=== PATIENT | male | born 1955 | race Caucasian/White ===

== ENCOUNTER 2017-01-19 15:53 | Observation (INO) | payer OTHER ==
--- NOTE | ~2017-01-19 | OP ---
Record Of Operation [facility] [address] [place]. [address] NAME: RUPA GUERRERO : 53 STATUS : DIS Alla PAT#: [id number] AGE: 61 ADM/REG DATE : 01/19/17 MR#: [id number] REPORT SERV DATE: 01/23/17 DICTATED BY: JR SAMPSON DATE: 01/20/17 REPORT STATUS : Draft TRANSCRIBED BY: MODL DATE: 01/20/17 DATE OF PROCEDURE: 01/20/2017 PREOPERATIVE DIAGNOSES: 1. Large recurrent herniated nucleus pulposus, L4-5. 2. Spinal stenosis, L4-5. 3. Intractable radiculopathy left and right L4-5. POSTOPERATIVE DIAGNOSES: 1. Large recurrent herniated nucleus pulposus, L4-5. 2. Spinal stenosis, L4-5. 3. Intractable radiculopathy left and right L4-5. PROCEDURE: 1. Microscopic navigation-assisted surgery. 2. Right L4-5 and left L4-5 hemilaminectomy, foraminotomy, partial facetectomy, and microdiskectomy. SURGEON: Rj Sampson D.O. FRONT DESK AGENT: Michael Arcos. ANESTHESIA: General. BLOOD LOSS: 20 mL. INDICATION FOR SURGERY: Listed in history and physical. See that for detail. DESCRIPTION OF PROCEDURE: The patient was identified in preoperative holding area, antibiotic prophylaxis given. Neurophysiology monitoring leads inserted. The patient was brought to the operative suite. General anesthetic including endotracheal intubation was administered. Eckert catheter was not necessary. He was placed prone on a Seng spine frame. Bony prominences were carefully padded. Thoracolumbar spine was scrubbed with Hibiclens solution. DuraPrep was painted. Sterile drapes were applied. Because of the complexity of surgery and the need to identify correct level of surgery intraoperatively as well as desire to carry out the safest and most precise dissection, I felt intraoperative navigation was mandatory. A small stab wound was carried out over the posterior superior iliac spine on the left side. A posterior percutaneous pin with navigational frame attached was inserted in PSIS. Intraoperative CT scan with O-arm obtained. CT information used to register the navigational system. With navigational assistance, I identified the midline at L4-5. A 2.5 cm skin incision was carried out. Initially, a blunt navigated probe was placed through the fascia, muscle, and docked on the right side of the interlaminar space. Muscle dilators were inserted, followed by placement of a tubular retractor, attached to an arm mount table. Record Of Operation [facility] [address] [place] [place]. [address] NAME: RUPA GUERRERO : 53 STATUS : DIS Alla PAT#: [id number] AGE: 61 ADM/REG DATE : 01/19/17 MR#: [id number] REPORT SERV DATE: 01/23/17 DICTATED BY: RJ SAMPSON DATE: 01/20/17 REPORT STATUS : Draft TRANSCRIBED BY: ARISTIDES DATE: 01/20/17 The microscope was sterilely draped and used throughout the remainder of the procedure. There had been prior surgery x2 on the right side. There was a lot of paraspinal scarring. I debrided the bulky scar. I then released the epidural adhesions. I used a 3 mm jonny bur. I removed an additional 15% of the inferior lamina of L4. The facet joint was essentially missing from the left side. The inferior articular process was completely missing on the right side. I did mobilize the epidural adhesions from the medial side of the facet joint. I debrided the medial facet joint an additional 3-4 mm and was able to gain entry to the disk space and then gently mobilized the thecal sac and the L5 nerve root. I found a large extruded disk herniation, which was removed and there was soft disk herniation. There was also some calcified herniation that was removed below the disc line behind the body of L5. After decompressing and carrying out the microdiskectomy, the wound was irrigated. The retractor was removed. I then moved to the left side. I used the same identical incision but placed a blunt navigated probe through the fascia and muscle and docked on the interlaminar space on the left side at L4-5. I placed tubular retractors. Once again with navigational assistance, I identified the amount of lamina of L4 to remove in order to reach the cephalad boundary of the disk space. I used also the navigation to determine the amount of medial facet joint to remove in order to reach the lateral aspect of the thecal sac. I used a 3 mm jonny bur and debrided approximately 30% to 40% of the inferior lamina of L4 and approximately 25% of the medial facet joint of L4-5. The hypertrophied thickened ligamentum flavum was elevated and removed with Kerrison rongeur. There was definitely lateral recess stenosis and foraminal stenosis due to ligamentum flavum hypertrophy. After debriding the hypertrophied thickened ligamentum flavum, I then inspected the disk space and debrided additionally. Epidural hemostasis was obtained. The wound was irrigated. The retractor was removed. The fascial opening was closed with a single interrupted #1 Vicryl suture. The subcutaneous tissue was closed with 2-0 Vicryl sutures, 2-0 vertical mattress nylon suture used for skin closure. Sterile dressings were applied. The patient was awakened, extubated, and taken to recovery room in satisfactory condition having tolerated the procedure well. Sponge, needle, and instrument counts were correct. No intraoperative complications. COY/ARISTIDES Rj Sampson D.O. / [id number] CC: Karena Hopkins M.D.
--- NOTE | ~2017-01-19 | PREOPHP ---
PreOp History and Physical [address] [place]. [address] NAME: RUPA GUERRERO : 53 STATUS : ADM Alla PAT#: [id number] AGE: 61 ADM/REG DATE : 01/19/17 MR#: [id number] REPORT SERV DATE: 01/20/17 DICTATED BY: RJ SAMPSON DATE: 01/20/17 REPORT STATUS : Draft TRANSCRIBED BY: MODL DATE: 01/20/17 CHIEF COMPLAINT: Intractable back pain and left greater than right leg pain. 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 He, on Monday morning, had recurrent HNP with severe intractable pain that came on too suddenly with no history of trauma. Pain is in his buttocks and both legs, the left is slightly greater than the right. The patient is now in pain 10/10. He cannot even stand and walk. He has to lean forward to take any steps. He feels marked numbness in his left leg and also weakness in the left foot. The patient has had no loss of bowel or bladder function, although he has had some feeling of urgency to urinate. He does not feel dramatic scrotal numbness or perirectal numbness. 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 It does cause left and right nerve impingement. He is not a cauda equina by history or physical exam, but the size of this HNP is so impressive, one would be very concerned about a possible advancement to a cauda equina. This large herniation fills the entire canal. The patient was in such an intractable pain, he was admitted for IV pain control. He will be taken to surgery today for a left and right L4-5 hemilaminotomy and microdiskectomy. He knows that he is certainly at risk of developing further disk deterioration. He could have recurrent herniation again, and this would definitely need an arthrodesis and stabilization. We do not plan on this surgery being associated with any stabilization or fusion. I have gone over the risks, benefits, alternatives and expectations including but not limited to infection, recurrent herniation, and need for future arthrodesis. There is always a risk of incidental durotomy with subsequent meningitis, arachnoiditis, and need for surgical drainage or repair. Perioperative complications such as UTI, PE, pneumonia, MO, CVA, etcetera were explained. PAST MEDICAL HISTORY: Included diabetes mellitus type 2, hypertension, exogenous obesity, and osteoarthritis. PAST SURGICAL HISTORY: 1. He has had a microdiskectomy x2, L4-5. 2. He has had a right total hip arthroplasty and a left total knee arthroplasty by Dr. Pedroza. 3. He has had tonsillectomy and adenoidectomy. 4. He has also had lithotripsy and has had multiple epidural injections from a procedural standpoint. CURRENT MEDICATIONS: Include metformin, Coreg, Flexeril, Amaryl, Prinivil, Mobic, and Ultram. ALLERGIES: NONE. SOCIAL HISTORY: He is . Does not use any tobacco or alcohol. 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 FAMILY HISTORY: Noncontributory except that his father has severe neuropathy and some diabetes. PreOp History and Physical [address] [address] NAME: RUPA GUERRERO : 53 STATUS : ADM Alla PAT#: [id number] AGE: 61 ADM/REG DATE : 01/19/17 MR#: [id number] REPORT SERV DATE: 01/20/17 DICTATED BY: RJ SAMPSON DATE: 01/20/17 REPORT STATUS : Draft TRANSCRIBED BY: ARISTIDES DATE: 01/20/17 PHYSICAL EXAMINATION: VITAL SIGNS: He is 5 feet 10 inches, 224 pounds. He is alert, cooperative, well oriented. He is more comfortable now. He is on a [employer]. HEENT: Grossly normal. LUNGS: Clear to auscultation. HEART: Rate is regular and rhythm. ABDOMEN: Soft with good bowel sounds. No peritoneal signs are noted. MUSCULOSKELETAL: The spine itself has no deformities and the previous incisions are well healed. He has no significant spasm. There is no evidence of abnormal pain behaviors. Pelon signs are negative. KATIE signs are negative. Straight leg raising is positive on the left at 30 degrees and on the right, it is positive for approximately 50 degrees. His motor strengths are normal on the right; on the left, the tibialis anterior and EHL are 4/5. There is some rather dense decreased sensation in the L5 distribution on the left, and he also has a slight decrease in vibratory sensation in both feet. Patellar reflex is 1/4. Achilles reflexes are absent. Toes are downgoing. No ankle clonus was found and no evidence of myelopathy. Orthopedically, he has no pain with moving the hips, knees, or ankles. He has pulses in all four extremities. No abnormal skin lesions found. ASSESSMENT: 1. Acute intractable back pain, bilateral leg pain, left greater than right. 2. Large recurrent herniated nucleus pulposus, L4-5. RECOMMENDATIONS: As listed above. /MODL Rj Sampson D.O. / [id number] CC: Karena Hopkins M.D.
[~2017-01-19 15:53] MED LIST: AMARYL4 PO; APRES50 PO; ATARAX50B PO; C5; CHLORZOXAZON500 MG OR; COREG25 PO; FISH-EPA1000 MG PO; FLEX PO; GLUCOPHAGE1000 MG PO; IBU800 PO; LISINOPRIL40 MG PO; MAGOX4 PO; MOBIC15 MG PO; MULTIVIT/MIN PO; NAP500 PO; PCET PO; PERCOCET1 TA2 PO; PERCOCET1 TA4 PO; PRIN20 PO; RIFADIN 300 MG300 MG PO; SEPTRA DS1 TAB PO; TYLOX1 CAP PO; ULTRAM50 PO; V5; VOLT75 PO
[2017-01-19] MEDS ORDERED: ULTRAM50 PO ×2 (16:21→17:17)
[2017-01-19] MEDS ORDERED: MOBIC7.5 PO (17:18)
[2017-01-19] MEDS ORDERED: LISINOPRIL40 MG PO (17:18)
[2017-01-19] MEDS ORDERED: COREG25 PO (17:18)
[2017-01-19] MEDS ORDERED: AMARYL4 PO (17:18)
[2017-01-19] MEDS ORDERED: FLEX PO (17:18)
[2017-01-19] MEDS ORDERED: GLUCOPHAGE1000 MG PO (17:19)
[2017-01-19 17:56] LABS: BASOPHILS 0.3 %; BASOPHILS ABSOLUTE 0.03 10/3/uL (0.0-0.16); EOSINOPHILS ABSOLUTE 0.09 10/3/uL (0.0-0.53); IMMATURE GRANULOCYTES 0.1 %; IMMATURE GRANULOCYTES ABSOLUTE 0.01 10/3/uL (0.0-0.11); LYMPHOCYTES 34.4 %; LYMPHOCYTES ABSOLUTE 3.01 10/3/uL (0.67-4.30); MEAN CORPUS HGB CONC 34.4 g/dL (32.0-36.0); MEAN CORPUSCULAR HEMOGLOB 28.6 pg (26.0-34.0); MEAN CORPUSCULAR VOLUME 83.2 fL (80-100); MEAN PLATELET VOLUME 9.8 fL (9.2-13.0); MONOCYTES ABSOLUTE 0.79 10/3/uL (0.21-1.20); NEUTROPHILS 55.2 %; NEUTROPHILS ABSOLUTE 4.83 10/3/uL (2.02-8.40); PLATELET COUNT 259 10/3/uL (150-400); RBC DISTRIBUTION WIDTH 12.8 % (12.0-16.0); RED CELL COUNT 5.07 10/6/uL (4.7-6.1); WHITE BLOOD CELLS 8.8 10/3/uL (4.5-10.5)
[2017-01-19 17:57] LABS: HEMATOCRIT 42.2 % (40.0-51.0); HEMOGLOBIN 14.5 g/dL (13.6-17.8); MANUAL DIFF NO %
[2017-01-19 18:09] LABS: BUN (BLOOD UREA NITROGEN) 19 MG/DL (6-23); CALCIUM, SERUM 9.1 MG/DL (8.5-10.4); CHLORIDE, SERUM 104 MMOL/L (96-112); CO2 (CARBON DIOXIDE) 30 MMOL/L (24-34); CREATININE 1.26 MG/DL (0.70-1.30); GFR AFRICAN AMERICAN 70 ML/MIN (>=60); GFR NON AFRICAN AMERICAN 61 ML/MIN (>=60); SODIUM, SERUM 141 MMOL/L (135-148)
[2017-01-19 18:10] LABS: GLUCOSE, SERUM 125 MG/DL (60-99)
[2017-01-19 23:28] LABS: ASCORBIC ACID (UR NOT ORDER) NEG (NEG); BILIRUBIN, URINE NEGATIVE (NEG); KETONE, URINE NEGATIVE (NEG); LEUKOCYTE ESTERASE(NOT OR NEG (NEG); WBC (NOT ORDERED) (RFLEX) 2 (0-5)
== END 2017-01-20 19:27 | disposition home or self-care (01) ==
LOC: CDU1 15:53 → 3SO 01-20 08:22
PROVIDERS: Orthopaedic Surgery Orthopaedic Surgery of the Spine
PROC: 0SB20ZZ Excision of Lumbar Vertebral Disc, Open Approach (ICD-10-PCS; principal; 2017-01-20 13:45)
PROC: 01NB0ZZ Release Lumbar Nerve, Open Approach (ICD-10-PCS; 2017-01-20 13:45)
DX: M51.16 Intervertebral disc disorders with radiculopathy, lumbar region (principal); M48.06 Spinal stenosis, lumbar region; I10 Essential (primary) hypertension; E11.9 Type 2 diabetes mellitus without complications; E66.9 Obesity, unspecified; M19.90 Unspecified osteoarthritis, unspecified site; M54.9 Dorsalgia, unspecified; Z87.442 Personal history of urinary calculi; Z79.84 Long term (current) use of oral hypoglycemic drugs; Z68.30 Body mass index [BMI] 30.0-30.9, adult; Z79.899 Other long term (current) drug therapy
CPT/HCPCS: 71010; 80048; 81001; 82962; 85025; 88304; 88311; A9270-GY; G0378; J0360; J0690; J2250; J2270; J2274; J2710; J3010